=== PATIENT | male | born 1985 | race Caucasian/White ===

== ENCOUNTER 2021-11-03 09:01 | Inpatient (IN) | payer BC ==
[2021-11-03 10:25] VITALS: BMI 21.3
[2021-11-03] MEDS ORDERED: ONDANSETRON *ODT* 4 MG TABLET SL PRN (12:49)
[2021-11-03] MEDS ORDERED: MAGNESIUM CITRATE 300 ML BOTTLE PO PRN (12:49)
[2021-11-03] MEDS ORDERED: IBUPROFEN 600 MG TABLET (FP) PO PRN (12:49)
[2021-11-03] MEDS ORDERED: MAGNESIUM HYDROX 2400MG/30ML ORAL SUSPENSION 30 ML CUP PO PRN (12:49)
[2021-11-03] MEDS ORDERED: cloNIDine HCL 0.1 MG TABLET PO PRN (12:49)
[2021-11-03] MEDS ORDERED: BENZOCAINE/MENTHOL (CHLORASEPTIC ) LOZENGE MM PRN (12:49)
[2021-11-03] MEDS ORDERED: ACETAMINOPHEN 325 MG TABLET (FP) PO PRN ×2 (12:49)
[2021-11-03] MEDS ORDERED: NICOTINE POLACRILEX 4 MG GUM BUC PRN (12:49)
[2021-11-03] MEDS ORDERED: MAG HYDROX/AL HYDROX/SIMETH 30 ML UNIT-DOSE CUP PO PRN (12:49)
[2021-11-03] MEDS ORDERED: LOPERAMIDE HCL 2 MG CAPSULE PO PRN (12:49)
[2021-11-03] MEDS ORDERED: BISMUTH SUBSALICYLATE 524 MG/30 ML PO PRN (12:49)
[2021-11-03] MEDS ORDERED: IBUPROFEN 400 MG TABLET (FP) PO PRN (12:49)
[2021-11-03] MEDS ORDERED: DICYCLOMINE HCL 10 MG CAPSULE PO PRN (12:49)
[2021-11-03] MEDS ORDERED: methaDONE HCL 10 MG TABLET (FOR DETOX USE ONLY) PO ONE (12:49)
[2021-11-03] MEDS: METHOCARBAMOL 500 MG TABLET PO PRN (14:19)
[2021-11-03] MEDS: NICOTINE 21 MG/24 HOURS TOPICAL PATCH TD SCH (14:19)
[2021-11-03] MEDS: NICOTINE 10 MG CARTRIDGE (INHALER) IH PRN ×2 (14:19→22:59)
[2021-11-03] MEDS: LORazepam 1 MG TABLET PO PRN (14:20)
[2021-11-03] MEDS: hydrOXYzine PAMOATE 25 MG CAPSULE (FP) PO SCH ×3 (14:23→22:48)
[2021-11-03] MEDS: LORazepam 2 MG TABLET PO SCH ×2 (18:25→22:49)
[2021-11-03] MEDS: MELATONIN 5 MG TABLETS PO SCH (22:47)
[2021-11-03] MEDS: THIAMINE HCL 100 MG TABLET (FP) PO SCH (22:47)
[2021-11-03] MEDS: AMOX TR/POT CLAV 875MG/125MG TABLETS (FP) PO SCH (22:49)
[2021-11-04] MEDS: LORazepam 2 MG TABLET PO SCH ×4 (06:14→22:59)
[2021-11-04] MEDS: hydrOXYzine PAMOATE 25 MG CAPSULE (FP) PO SCH ×5 (06:14→23:09)
[2021-11-04 09:02] LABS: CHLORIDE 106 mmol/L (98-107); SODIUM 141 mmol/L (136-145)
[2021-11-04 09:04] LABS: ANION GAP 6 MMOL/L (8-16); BLOOD UREA NITROGEN 18.7 mg/dL (7-18); CALCIUM 8.8 mg/dL (8.5-10.1); CO2 30 mmol/L (21-32); GLUCOSE,RANDOM 83 mg/dL (74-106)
[2021-11-04 09:07] LABS: CREATININE 0.6 mg/dL (0.55-1.3); SGOT/AST 26 U/L (15-37); SGPT/ALT 33 U/L (13-61)
[2021-11-04 09:09] LABS: BILIRUBIN,TOTAL < 0.1 mg/dL (0.2-1); TOT PROT 6.4 g/dl (6.4-8.2)
[2021-11-04 09:10] LABS: ALK PHOS 104 U/L (45-117)
[2021-11-04 09:11] LABS: HEMATOCRIT 37.3 % (35.4-49); HEMOGLOBIN 12.3 GM/dL (11.7-16.9); MCH 26.2 pg (25.7-33.7); MEAN CELL VOLUME 79.4 fl (80-96); MEAN PLT VOLUME 7.7 fl (7.5-11.1); PLATELET COUNT 300 10^3/uL (134-434); RDW 12.9 % (11.9-15.9); WHITE BLOOD COUNT 7.7 K/mm3 (4.0-10.0)
[2021-11-04] MEDS ORDERED: methaDONE HCL 10 MG TABLET (FOR DETOX USE ONLY) ONE (09:43)
[2021-11-04] MEDS: PRENATAL VITAMINS W/ FOLIC ACID TABLET (FP) PO SCH (10:35)
[2021-11-04] MEDS: NICOTINE 21 MG/24 HOURS TOPICAL PATCH TD SCH (10:37)
[2021-11-04] MEDS: METHOCARBAMOL 500 MG TABLET PO PRN ×2 (10:38→17:53)
[2021-11-04] MEDS: AMOX TR/POT CLAV 875MG/125MG TABLETS (FP) PO SCH ×2 (11:56→23:10)
[2021-11-04] MEDS: NICOTINE 10 MG CARTRIDGE (INHALER) IH PRN (13:04)
[2021-11-04] MEDS: THIAMINE HCL 100 MG TABLET (FP) PO SCH (22:59)
[2021-11-04] MEDS: MELATONIN 5 MG TABLETS PO SCH (22:59)
[2021-11-05] MEDS: hydrOXYzine PAMOATE 25 MG CAPSULE (FP) PO SCH ×4 (05:44→17:29)
[2021-11-05] MEDS: LORazepam 1 MG TABLET PO SCH ×3 (05:45→17:30)
[2021-11-05] MEDS: METHOCARBAMOL 500 MG TABLET PO PRN (05:46)
[2021-11-05] MEDS ORDERED: methaDONE HCL 10 MG TABLET (FOR DETOX USE ONLY) PO ONE (10:00)
[2021-11-05] MEDS: PRENATAL VITAMINS W/ FOLIC ACID TABLET (FP) PO SCH (10:01)
[2021-11-05] MEDS: NICOTINE 10 MG CARTRIDGE (INHALER) IH PRN ×3 (10:01→17:32)
[2021-11-05] MEDS: NICOTINE 21 MG/24 HOURS TOPICAL PATCH TD SCH (10:01)
[2021-11-05 13:10] VITALS: PULSE 90; RESP 18
[2021-11-05] MEDS: LORazepam 1 MG TABLET PO PRN (14:30)
[2021-11-05 17:54] VITALS: BP 124/60; TEMP 99.3
[2021-11-06] MEDS ORDERED: LORazepam 0.5 MG TABLET PO PRN
[2021-11-06] MEDS ORDERED: LORazepam 0.5 MG TABLET PO SCH (05:00)
[2021-11-07] MEDS ORDERED: LORazepam 0.5 MG TABLET PO ONE (05:00)
[2021-11-07] MEDS ORDERED: methaDONE HCL 10 MG TABLET (FOR DETOX USE ONLY) PO ONE (10:00)
== END 2021-11-05 21:51 | disposition left against medical advice (07) | DRG 770 ==
LOC: YASAS 09:01 → Y6N 13:40
PROVIDERS: ADMIT Allergy & Immunology; ATTEND Surgery
PROC: HZ2ZZZZ Detoxification Services for Substance Abuse Treatment (ICD-10-PCS; principal; 2021-11-03)
DX: F11.23 Opioid dependence with withdrawal (principal); F10.230 Alcohol dependence with withdrawal, uncomplicated; F14.20 Cocaine dependence, uncomplicated; F13.20 Sedative, hypnotic or anxiolytic dependence, uncomplicated; F17.210 Nicotine dependence, cigarettes, uncomplicated; F19.280 Other psychoactive substance dependence with psychoactive substance-induced anxiety disorder; F19.282 Other psychoactive substance dependence with psychoactive substance-induced sleep disorder; F43.10 Post-traumatic stress disorder, unspecified; L02.416 Cutaneous abscess of left lower limb; R56.9 Unspecified convulsions; R76.11 Nonspecific reaction to tuberculin skin test without active tuberculosis; Z62.810 Personal history of physical and sexual abuse in childhood; Z28.310 Unvaccinated for COVID-19; Z88.7 Allergy status to serum and vaccine
CPT/HCPCS: 36415; 71046-TC-FY; 80053; 85027; 86780; 87811; 93005; 93010; C9803-CS; J0735; U0003; U0005

== ENCOUNTER 2021-11-06 05:32 | Inpatient (IN) | payer BC ==
[2021-11-06 05:54] VITALS: BMI 21.9
[2021-11-06] MEDS ORDERED: MAGNESIUM CITRATE 300 ML BOTTLE PO PRN (10:12)
[2021-11-06] MEDS ORDERED: LOPERAMIDE HCL 2 MG CAPSULE PO PRN (10:12)
[2021-11-06] MEDS ORDERED: NALOXONE HCL (KLOXXADO) 8 MG SPRAY NS PRN (10:12)
[2021-11-06] MEDS ORDERED: cloNIDine HCL 0.1 MG TABLET PO PRN (10:12)
[2021-11-06] MEDS ORDERED: BENZOCAINE/MENTHOL (CHLORASEPTIC ) LOZENGE MM PRN (10:12)
[2021-11-06] MEDS ORDERED: MAGNESIUM HYDROX 2400MG/30ML ORAL SUSPENSION 30 ML CUP PO PRN (10:12)
[2021-11-06] MEDS ORDERED: METHOCARBAMOL 500 MG TABLET PO PRN (10:12)
[2021-11-06] MEDS ORDERED: IBUPROFEN 600 MG TABLET (FP) PO PRN (10:12)
[2021-11-06] MEDS ORDERED: DICYCLOMINE HCL 10 MG CAPSULE PO PRN (10:12)
[2021-11-06] MEDS ORDERED: BISMUTH SUBSALICYLATE 262 MG/15 ML BTL PO PRN (10:12)
[2021-11-06] MEDS ORDERED: ONDANSETRON *ODT* 4 MG TABLET SL PRN (10:12)
[2021-11-06] MEDS ORDERED: MAG HYDROX/AL HYDROX/SIMETH 30 ML UNIT-DOSE CUP PO PRN (10:12)
[2021-11-06] MEDS ORDERED: ACETAMINOPHEN 325 MG TABLET (FP) PO PRN (10:12)
[2021-11-06] MEDS ORDERED: IBUPROFEN 400 MG TABLET (FP) PO PRN (10:12)
[2021-11-06] MEDS ORDERED: NICOTINE POLACRILEX 2 MG GUM BUC PRN (10:12)
[2021-11-06] MEDS ORDERED: AMOX TR/POT CLAV 875MG/125MG TABLETS (FP) PO SCH (11:00)
[2021-11-06] MEDS ORDERED: methaDONE HCL 10 MG TABLET (FOR DETOX USE ONLY) PO ONE (11:00)
[2021-11-06] MEDS: LORazepam 1 MG TABLET PO SCH ×3 (12:12→22:11)
[2021-11-06] MEDS: NICOTINE 10 MG CARTRIDGE (INHALER) IH PRN ×3 (12:12→21:08)
[2021-11-06] MEDS: NICOTINE 21 MG/24 HOURS TOPICAL PATCH TD SCH (12:12)
[2021-11-06] MEDS: hydrOXYzine PAMOATE 25 MG CAPSULE (FP) PO SCH ×3 (13:25→22:10)
[2021-11-06] MEDS: ACETAMINOPHEN 325 MG TABLET (FP) PO PRN (17:42)
[2021-11-06] MEDS: QUEtiapine FUMARATE 50 MG TABLET PO SCH (22:10)
[2021-11-06] MEDS: THIAMINE HCL 100 MG TABLET (FP) PO SCH (22:10)
[2021-11-06] MEDS: MELATONIN 5 MG TABLETS PO SCH (22:10)
[2021-11-07] MEDS ORDERED: LORazepam 0.5 MG TABLET PO SCH (05:00)
[2021-11-07] MEDS: hydrOXYzine PAMOATE 25 MG CAPSULE (FP) PO SCH ×5 (05:55→22:12)
[2021-11-07] MEDS: LORazepam 1 MG TABLET PO SCH (05:55)
[2021-11-07] MEDS ORDERED: methaDONE HCL 10 MG TABLET (FOR DETOX USE ONLY) ONE (09:24)
[2021-11-07] MEDS: NICOTINE 21 MG/24 HOURS TOPICAL PATCH TD SCH (09:52)
[2021-11-07] MEDS: PRENATAL VITAMINS W/ FOLIC ACID TABLET (FP) PO SCH (09:53)
[2021-11-07] MEDS: NICOTINE 10 MG CARTRIDGE (INHALER) IH PRN ×4 (09:55→22:13)
[2021-11-07] MEDS: LORazepam 0.5 MG TABLET PO SCH ×3 (10:16→22:11)
[2021-11-07] MEDS: LORazepam 1 MG TABLET PO PRN (19:34)
[2021-11-07] MEDS: THIAMINE HCL 100 MG TABLET (FP) PO SCH (22:12)
[2021-11-07] MEDS: QUEtiapine FUMARATE 50 MG TABLET PO SCH (22:12)
[2021-11-07] MEDS: ACETAMINOPHEN 325 MG TABLET (FP) PO PRN (22:12)
[2021-11-07] MEDS: MELATONIN 5 MG TABLETS PO SCH (22:12)
[2021-11-08] MEDS: LORazepam 1 MG TABLET PO PRN (00:38)
[2021-11-08] MEDS ORDERED: LORazepam 0.5 MG TABLET PO ONE ×2 (05:00→11:00)
[2021-11-08] MEDS: hydrOXYzine PAMOATE 25 MG CAPSULE (FP) PO SCH ×2 (05:59→10:05)
[2021-11-08] MEDS: LORazepam 0.5 MG TABLET PO SCH (06:00)
[2021-11-08 09:32] VITALS: BP 124/73; PULSE 64; RESP 18; TEMP 97.2
[2021-11-08] MEDS ORDERED: methaDONE HCL 10 MG TABLET (FOR DETOX USE ONLY) PO ONE (10:00)
[2021-11-08] MEDS: NICOTINE 21 MG/24 HOURS TOPICAL PATCH TD SCH (10:05)
[2021-11-08] MEDS: PRENATAL VITAMINS W/ FOLIC ACID TABLET (FP) PO SCH (10:05)
[2021-11-09] MEDS ORDERED: LORazepam 0.5 MG TABLET PO PRN
== END 2021-11-08 11:55 | disposition home or self-care (01) | DRG 773 ==
LOC: YASAS 05:32 → Y6N 10:52 → Y3N 10:59
PROVIDERS: ADMIT Allergy & Immunology; ATTEND Surgery
PROC: HZ2ZZZZ Detoxification Services for Substance Abuse Treatment (ICD-10-PCS; principal; 2021-11-06)
DX: F11.23 Opioid dependence with withdrawal (principal); F10.230 Alcohol dependence with withdrawal, uncomplicated; F13.230 Sedative, hypnotic or anxiolytic dependence with withdrawal, uncomplicated; F14.20 Cocaine dependence, uncomplicated; F17.210 Nicotine dependence, cigarettes, uncomplicated; F19.24 Other psychoactive substance dependence with psychoactive substance-induced mood disorder; F19.282 Other psychoactive substance dependence with psychoactive substance-induced sleep disorder; F19.280 Other psychoactive substance dependence with psychoactive substance-induced anxiety disorder; F31.9 Bipolar disorder, unspecified; G47.00 Insomnia, unspecified; L02.416 Cutaneous abscess of left lower limb; Z28.310 Unvaccinated for COVID-19; Z86.11 Personal history of tuberculosis; Z88.8 Allergy status to other drugs, medicaments and biological substances; Z56.0 Unemployment, unspecified
CPT/HCPCS: 87811; C9803-CS; U0003; U0005